=== PATIENT | male | born 1955 | race Caucasian/White ===

== ENCOUNTER 2019-06-22 13:23 | Inpatient (IN) | payer OTHER ==
--- NOTE | 2019-06-22 13:43 | EDM.PDOC ---
ED HPI GENERAL MEDICAL PROBLEM - General Chief Complaint: Chest Pain Stated Complaint: RAPID HEARTBEAT Time Seen by Provider: 06/22/19 13:30 Source of Information: Reports: Patient, Family History Limitations: Reports: No Limitations - History of Present Illness INITIAL COMMENTS - FREE TEXT/NARRATIVE: Patient is unfortunate 63-year-old male who presents emergency Department today with complaint of fast heart rate. Patient reports that he was in his normal state of health until week ago when he developed a cough with productive yellow sputum and sinus congestion no fever no chills no body aches. Patient reports that he went to the clinic in [facility] yesterday was found to have a high heart rate they placed him on Zithromax and sent him home he went back again today for follow-up EKG showed A. fib with RVR so patient was sent here for evaluation. No chest pain no shortness of breath no nausea no vomiting - Related Data Allergies Allergy/AdvReac Type Severity Reaction Status Date / Time No Known Allergies Allergy Verified 06/22/19 13:43 ED ROS GENERAL - Review of Systems Review Of Systems: See Below Constitutional: Denies: Fever, Chills HEENT: Reports: Rhinitis Respiratory: Reports: Cough, Sputum. Denies: Shortness of Breath Cardiovascular: Reports: Other (tachycardia). Denies: Chest Pain, Blood Pressure Problem ED EXAM, GENERAL - Physical Exam Exam: See Below Exam Limited By: No Limitations General Appearance: Alert, WD/WN, Obese Ears: Normal External Exam, Normal Canal, Hearing Grossly Normal, Normal TMs Nose: Normal Inspection, Normal Mucosa, No Blood Throat/Mouth: Normal Inspection, Normal Lips, Normal Teeth, Normal Gums, Normal Oropharynx, Normal Voice, No Airway Compromise Head: Atraumatic, Normocephalic Neck: Normal Inspection, Supple, Non-Tender, Full Range of Motion Respiratory/Chest: No Respiratory Distress, Lungs Clear, Normal Breath Sounds, No Accessory Muscle Use, Chest Non-Tender Cardiovascular: Normal Peripheral Pulses, Tachycardia, Irregularly Irregular GI/Abdominal: Normal Bowel Sounds, Soft, Non-Tender, No Organomegaly, No Distention, No Abnormal Bruit, No Mass Back Exam: Normal Inspection, Full Range of Motion, NT Extremities: Normal Inspection, Normal Range of Motion, Non-Tender, Normal Capillary Refill, No Pedal Edema Neurological: Alert Skin Exam: Warm, Dry Course - Vital Signs Last Recorded V/S: Last Vital Signs Temp 95.6 F 06/22/19 13:36 Pulse 153 H 06/22/19 13:36 Resp 10 L 06/22/19 13:36 BP 140/111 H 06/22/19 13:36 Pulse Ox 96 06/22/19 13:36 - Orders/Labs/Meds Orders: Active Orders 24 hr Category Date Time Status Cardiac Monitoring [RC] . DIRECTED Care 06/22/19 13:40 Active EKG Documentation Completion [RC] ASDIRECTED Care 06/22/19 13:40 Active UA RFX ENOC AND CULT IF INDIC [URIN] Stat Lab 06/22/19 13:40 Ordered Diltiazem 125 mg Med 06/22/19 16:00 Active Sodium Chloride 0.9% [Normal Saline] 100 ml IV TITRATE Sodium Chloride 0.9% [Saline Flush] Med 06/22/19 13:40 Active 10 ml FLUSH ASDIRECTED PRN Saline Lock Insert [OM.PC] Stat Oth 06/22/19 13:40 Ordered EKG 12 Lead [EK] Stat Ther 06/22/19 13:40 Ordered Medication Orders Diltiazem HCl 125 mg/ Sodium (Chloride) 125 mls @ 10 mls/hr IV TITRATE FAITH; Protocol Last Admin: 06/22/19 16:14 Dose: 10 mg/hr, 10 mls/hr Sodium Chloride (Saline Flush) 10 ml FLUSH ASDIRECTED PRN PRN Reason: Keep Vein Open Last Admin: 06/22/19 14:43 Dose: 10 ml Labs: Laboratory Tests 06/22/19 06/22/19 06/22/19 Range/Units 13:40 13:40 13:40 WBC 8.31 (4.23-9.07) K/mm3 RBC 5.73 (4.63-6.08) M/mm3 Hgb 17.2 (13.7-17.5) gm/dl Hct 53.2 H (40.1-51.0) % MCV 92.8 H (79.0-92.2) fl MCH 30.0 (25.7-32.2) pg MCHC 32.3 (32.2-35.5) g/dl RDW Std Deviation 47.4 H (35.1-43.9) fL Plt Count 211 (163-337) K/mm3 MPV 10.0 (9.4-12.3) fl Neut % (Auto) 72.7 H (34.0-67.9) % Lymph % (Auto) 19.1 L (21.8-53.1) % [place] % (Auto) 7.2 (5.3-12.2) % Eos % (Auto) 0.4 L (0.8-7.0) Baso % (Auto) 0.4 (0.1-1.2) % Neut # (Auto) 6.04 H (1.78-5.38) K/mm3 Lymph # (Auto) 1.59 (1.32-3.57) K/mm3 [place] # (Auto) 0.60 (0.30-0.82) K/mm3 Eos # (Auto) 0.03 L (0.04-0.54) K/mm3 Baso # (Auto) 0.03 (0.01-0.08) K/mm3 Manual Slide Review Abnormal smear PT (9.7-12.0) SECONDS INR APTT (22-31) SECONDS Sodium 135 L (136-145) mEq/L Potassium 4.5 (3.5-5.1) mEq/L Chloride 97 L (98-107) mEq/L Carbon Dioxide 32 (21-32) mEq/L Anion Gap 10.5 (5-15) BUN 12 (7-18) mg/dL Creatinine 0.9 (0.7-1.3) mg/dL Est Cr Clr Drug Dosing 86.74 mL/min Estimated GFR (MDRD) > 60 (>60) mL/min BUN/Creatinine Ratio 13.3 L (14-18) Glucose 109 (80-115) mg/dL Calcium 9.0 (8.5-10.1) mg/dL Total Bilirubin 0.4 (0.2-1.0) mg/dL AST 23 (15-37) U/L ALT 34 (16-63) U/L Alkaline Phosphatase 88 (46-116) U/L Troponin I < 0.017 (0.00-0.056) ng/mL NT-Pro-B Natriuret Pep 912 H (0-125) pg/mL Total Protein 8.3 H (6.4-8.2) g/dl Albumin 4.0 (3.4-5.0) g/dl Globulin 4.3 gm/dL Albumin/Globulin Ratio 0.9 L (1-2) 06/22/19 Range/Units 13:40 WBC (4.23-9.07) K/mm3 RBC (4.63-6.08) M/mm3 Hgb (13.7-17.5) gm/dl Hct (40.1-51.0) % MCV (79.0-92.2) fl MCH (25.7-32.2) pg MCHC (32.2-35.5) g/dl RDW Std Deviation (35.1-43.9) fL Plt Count (163-337) K/mm3 MPV (9.4-12.3) fl Neut % (Auto) (34.0-67.9) % Lymph % (Auto) (21.8-53.1) % [place] % (Auto) (5.3-12.2) % Eos % (Auto) (0.8-7.0) Baso % (Auto) (0.1-1.2) % Neut # (Auto) (1.78-5.38) K/mm3 Lymph # (Auto) (1.32-3.57) K/mm3 [place] # (Auto) (0.30-0.82) K/mm3 Eos # (Auto) (0.04-0.54) K/mm3 Baso # (Auto) (0.01-0.08) K/mm3 Manual Slide Review PT 10.8 (9.7-12.0) SECONDS INR 0.99 APTT 26 (22-31) SECONDS Sodium (136-145) mEq/L Potassium (3.5-5.1) mEq/L Chloride (98-107) mEq/L Carbon Dioxide (21-32) mEq/L Anion Gap (5-15) BUN (7-18) mg/dL Creatinine (0.7-1.3) mg/dL Est Cr Clr Drug Dosing mL/min Estimated GFR (MDRD) (>60) mL/min BUN/Creatinine Ratio (14-18) Glucose (80-115) mg/dL Calcium (8.5-10.1) mg/dL Total Bilirubin (0.2-1.0) mg/dL AST (15-37) U/L ALT (16-63) U/L Alkaline Phosphatase (46-116) U/L Troponin I (0.00-0.056) ng/mL NT-Pro-B Natriuret Pep (0-125) pg/mL Total Protein (6.4-8.2) g/dl Albumin (3.4-5.0) g/dl Globulin gm/dL Albumin/Globulin Ratio (1-2) Meds: Medications Generic Name Dose Route Start Last Admin Trade Name Freq PRN Reason Stop Dose Admin Diltiazem HCl 125 mg/ Sodium 125 mls @ 10 mls/hr 06/22/19 16:00 06/22/19 16: 14 Chloride IV 10 mg/hr TITRATE FAITH 10 mls/hr Administration Protocol 10 MG/HR Sodium Chloride 10 ml 06/22/19 13:40 06/22/19 14:43 Saline Flush FLUSH 10 ml ASDIRECTED PRN Administration Keep Vein Open Discontinued Medications Generic Name Dose Route Start Last Admin Trade Name Freq PRN Reason Stop Dose Admin Diltiazem HCl 10 mg 06/22/19 14:27 06/22/19 14:42 Cardizem IVPUSH 06/22/19 14:28 10 mg ONETIME ONE Administration Diltiazem HCl 10 mg 06/22/19 15:00 06/22/19 15:11 Cardizem IVPUSH 06/22/19 15:01 10 mg ONETIME ONE Administration Enoxaparin Sodium 120 mg 06/22/19 16:34 06/22/19 16:41 Lovenox SUBCUT 06/22/19 16:35 120 mg ONETIME ONE Administration - Re-Assessments/Exams Free Text/Narrative Re-Assessment/Exam: 06/22/19 16:[address] Juarez who accepts patient into inpatient status for A. fib with RVR Departure - Departure Time of Disposition: 17:00 Disposition: Admitted As Inpatient 66 Condition: Fair Clinical Impression: Atrial fibrillation with RVR Referrals: PCP,Not In Area [Primary Care Provider] - Forms: ED Department Discharge Sepsis Event Note - Evaluation Sepsis Screening Result: No Definite Risk - Focused Exam Vital Signs: Vital Signs Temp Pulse Resp BP Pulse Ox 06/22/19 13:36 95.6 F 153 H 10 L 140/111 H 96 Date Exam was Performed: 06/22/19 Time Exam was Performed: 17:00 - My Orders Last 24 Hours: My Active Orders 06/22/19 13:40 Cardiac Monitoring [RC] . DIRECTED EKG Documentation Completion [RC] ASDIRECTED UA RFX ENOC AND CULT IF INDIC [URIN] Stat Sodium Chloride 0.9% [Saline Flush] 10 ml FLUSH ASDIRECTED PRN Saline Lock Insert [OM.PC] Stat EKG 12 Lead [EK] Stat 06/22/19 16:00 Diltiazem 125 mg Sodium Chloride 0.9% [Normal Saline] 100 ml IV TITRATE - Assessment/Plan Last 24 Hours: My Active Orders 06/22/19 13:40 Cardiac Monitoring [RC] . DIRECTED EKG Documentation Completion [RC] ASDIRECTED UA RFX ENOC AND CULT IF INDIC [URIN] Stat Sodium Chloride 0.9% [Saline Flush] 10 ml FLUSH ASDIRECTED PRN Saline Lock Insert [OM.PC] Stat EKG 12 Lead [EK] Stat 06/22/19 16:00 Diltiazem 125 mg Sodium Chloride 0.9% [Normal Saline] 100 ml IV TITRATE
[2019-06-22] MEDS ORDERED: Diltiazem 50 MG/10 ML SDV IVPUSH ONE ×2 (14:27→15:00)
[2019-06-22] MEDS: Sodium Chloride 0.9% 10 ML Syringe FLUSH PRN (14:43)
--- NOTE | 2019-06-22 15:13 | CR ---
Chest: Two views of the chest were obtained. Comparison: No previous chest x-ray. Heart size and mediastinum are normal. Lungs are clear. Bony structures are within normal limits for the patient's age. Impression: 1. Nothing acute is seen on two-view chest x-ray. Diagnostic code #1 This report was dictated in [place] Standard Time
[2019-06-22] MEDS: Diltiazem 125 MG in Sodium Chloride 0.9% 100 ML IV SCH (16:14)
[2019-06-22] MEDS ORDERED: Enoxaparin 120 MG/0.8 ML Syringe SUBCUT ONE (16:34)
[2019-06-22] MEDS ORDERED: Ondansetron 4 MG/2 ML SDV IV PRN (17:27)
[2019-06-22] MEDS ORDERED: Ondansetron 4 MG Tab.DIS PO PRN (17:27)
--- NOTE | 2019-06-22 17:45 | PCM.HP.2 ---
H&P History of Present Illness - General Date of Service: 06/22/19 Admit Problem/Dx: Admission Diagnosis/Problem Admission Diagnosis/Problem Atrial fibrillation with rapid ventricular response - History of Present Illness Initial Comments - Free Text/Narative: This is a 63 year old male with past medical history of hypertension who comes to the ED referred by outpatient walk in clinic for afib with RVR. As per patient he started having nasal congestion and coughing for about 3 days. On Wednesday he consulted walk in clinic and was given Zithromax and sent home to f/u in 2 days. Upon follow up patient was found to be tachycardic still for which he was sent to the ED for further evaluation and management. - Related Data Allergies/Adverse Reactions: Allergies Allergy/AdvReac Type Severity Reaction Status Date / Time No Known Allergies Allergy Verified 06/22/19 13:43 Past Medical History Cardiovascular History: Reports: Hypertension Respiratory History: Reports: Bronchitis, Recurrent Musculoskeletal History: Reports: Arthritis Other Musculoskeletal History: right great toe Neurological History: Reports: Migraines Endocrine/Metabolic History: Reports: Hypothyroidism - Past Surgical History GI Surgical History: Reports: Colonoscopy, Hernia, Abdominal Musculoskeletal Surgical History: Reports: Other (See Below) Other Musculoskeletal Surgeries/Procedures:: right tib/fib fracture with martha removed Social & Family History - Tobacco Use Smoking Status *Q: Never Smoker - Caffeine Use Caffeine Use: Reports: Soda Other Caffeine Use: diet - Recreational Drug Use Recreational Drug Use: No H&P Review of Systems - Review of Systems: Review Of Systems: See Below General: Denies: Fever, Chills, Malaise, Weakness, Fatigue, Night Sweats, Diaphoresis, Decreased Appetite HEENT: Reports: Sinus Congestion. Denies: Headaches, Post Nasal Drip, Sore Throat, Vertigo, Visual Changes Pulmonary: Reports: Cough. Denies: Shortness of Breath, Wheezing, Pleuritic Chest Pain, Sputum, Hemoptysis Cardiovascular: Denies: Chest Pain, Palpitations, Dyspnea on Exertion, Orthopnea , PND, Edema, Lightheadedness, Syncope Gastrointestinal: Denies: Abdominal Pain, Anorexia, Constipation, Diarrhea, Distension, Nausea, Vomiting Genitourinary: Denies: Dysuria, Frequency, Burning, Pain, Urgency Musculoskeletal: Denies: Joint Pain, Joint Swelling, Muscle Pain, Muscle Stiffness Skin: Denies: Cyanosis, Jaundice, Mottled, Pallor, Diaphoresis Psychiatric: Denies: Confusion, Depression, Mood Lability, Anxiety Neurological: Denies: Confusion, Dizziness, Headache, Numbness, Paresthesia Exam - Exam Exam: See Below - Vital Signs Vital Signs: Last Vital Signs Temp 95.6 F 06/22/19 13:36 Pulse 153 H 06/22/19 13:36 Resp 10 L 06/22/19 13:36 BP 140/111 H 06/22/19 13:36 Pulse Ox 96 06/22/19 13:36 Weight: 127.006 kg - Exam Quality Assessment: No: Supplemental Oxygen, Central Line/PICC, Urinary Catheter General: Alert, Oriented, Cooperative. No: Mild Distress HEENT: EOMI, Hearing Intact Neck: Supple, Trachea Midline, +2 Carotid Pulse wo Bruit, Full Range of Motion. No: Lymphadenopathy Lungs: Clear to Auscultation, Normal Respiratory Effort. No: Crackles, Rales, Rhonchi, Wheezing Cardiovascular: Irregular Rhythm, Tachycardia. No: Systolic Murmur, Diastolic Murmur, Rubs, Gallop/S3, Gallop/S4 GI/Abdominal Exam: Normal Bowel Sounds, Soft, Non-Tender, No Organomegaly, No Distention, No Mass. No: Distended, Guarding, Rigid, Rebound Back Exam: Normal Inspection Extremities: Normal Inspection, Normal Range of Motion, Non-Tender, No Pedal Edema, Normal Capillary Refill Peripheral Pulses: 2+: Radial (L), Radial (R), Dorsalis Pedis (L), Dorsalis Pedis (R) Skin: Warm, Dry Neuro Extensive - Mental Status: Alert, Oriented x3, Normal Mood/Affect, Normal Cognition, Memory Intact Psychiatric: Alert, Normal Affect, Normal Mood - Patient Data Result Diagrams: 06/22/19 13:40 06/22/19 13:40 Sepsis Event Note - Evaluation Sepsis Screening Result: No Definite Risk - Focused Exam Vital Signs: Vital Signs Temp Pulse Resp BP Pulse Ox 06/22/19 13:36 95.6 F 153 H 10 L 140/111 H 96 Date Exam was Performed: 06/22/19 Time Exam was Performed: 17:40 - Problem List (1) Atrial fibrillation with RVR SNOMED Code(s): 910326324162351 ICD Code: I48.91 - UNSPECIFIED ATRIAL FIBRILLATION Status: Acute Current Visit: Yes (2) Hypertension SNOMED Code(s): 96293629 ICD Code: I10 - ESSENTIAL (PRIMARY) HYPERTENSION Status: Acute Current Visit: Yes (3) Hypothyroidism SNOMED Code(s): 71566151 ICD Code: E03.9 - HYPOTHYROIDISM, UNSPECIFIED Status: Acute Current Visit : Yes (4) Obesity, Class III, BMI 40-49.9 (morbid obesity) SNOMED Code(s): 577249028, 105950400, 58380011647586 ICD Code: E66.01 - MORBID (SEVERE) OBESITY DUE TO EXCESS CALORIES Status: Acute Current Visit: Yes Problem List Initiated/Reviewed/Updated: Yes Assessment/Plan Comment:: Atrial fibrillation with RVR HR on admission 153 Given Diltiazem 10mg IV and started on drip PLAN - Diltiazem drip - Echocardiogram - HbA1c - Calculate chads vasc once HbA1c result is back Hypertension BP on admission 140/111, HR 153 PLAN - Reconcile home meds once available - PRN hydralazine Hypothyroidism Unknown control Patient voices compliance PLAN - TSH - Free T4 - Continue home levothyroxine once home meds are available Obesity, Class III, BMI 40-49.9 (morbid obesity) Patient on metformin for weight loss PLAN - HbA1c ordered PROPHYLAXIS DVT- compression stockings GI- not indicated CODE STATUS: FULL CODE DISPOSITION: Patient will be admitted to the ICU for diltiazem drip, taper off once rate controlled. Echocardiogram ordered. 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 - Mortality Measure Prognosis:: Good
[2019-06-22 18:05] LABS: HEMOGLOBIN A1C 5.6 % (4.50-6.20)
[2019-06-23] MEDS: Diltiazem 125 MG in Sodium Chloride 0.9% 100 ML IV SCH ×2 (01:24→08:47)
--- NOTE | 2019-06-23 11:32 | PCM.PN ---
- General Info Date of Service: 06/23/19 Admission Dx/Problem (Free Text): Admission Diagnosis/Problem Admission Diagnosis/Problem Atrial fibrillation with rapid ventricular response Subjective Update: In to see Ladarius. We discussed plan of care. He reports he travels back and forth between [place] and here. He does not have a PCP here but does have one in [place]. He has never seen cardiology. He currently has no complaints. No nursing concerns. He did bring in his home medications. Functional Status: Reports: Pain Controlled, Tolerating Diet, Ambulating, Urinating. Denies: New Symptoms - Review of Systems General: Reports: No Symptoms. Denies: Fever, Weakness, Fatigue, Malaise HEENT: Reports: No Symptoms. Denies: Headaches, Sore Throat Pulmonary: Reports: No Symptoms. Denies: Shortness of Breath, Cough, Sputum, Wheezing Cardiovascular: Reports: No Symptoms. Denies: Chest Pain, Palpitations, Dyspnea on Exertion Gastrointestinal: Reports: No Symptoms. Denies: Abdominal Pain, Constipation, Diarrhea, Nausea, Vomiting Genitourinary: Reports: No Symptoms. Denies: Pain Musculoskeletal: Reports: No Symptoms Skin: Reports: No Symptoms. Denies: Cyanosis Neurological: Reports: No Symptoms. Denies: Pre-Existing Deficit, Difficulty Walking, Gait Disturbance Psychiatric: Reports: No Symptoms - Patient Data Vitals - Most Recent: Last Vital Signs Temp 97.4 F 06/23/19 08:00 Pulse 153 H 06/22/19 13:36 Resp 18 06/23/19 08:00 BP 120/87 06/23/19 08:01 Pulse Ox 96 06/23/19 08:01 Weight - Most Recent: 272 lb 4.8 oz I&O - Last 24 Hours: Intake & Output 06/22/19 06/23/19 06/23/19 22:59 06:59 14:59 Intake Total 300 443 300 Output Total 250 300 Balance 50 143 300 Lab Results Last 24 Hours: Laboratory Results - last 24 hr 06/22/19 06/22/19 06/22/19 Range/Units 13:40 13:40 13:40 WBC 8.31 (4.23-9.07) K/mm3 RBC 5.73 (4.63-6.08) M/mm3 Hgb 17.2 (13.7-17.5) gm/dl Hct 53.2 H (40.1-51.0) % MCV 92.8 H (79.0-92.2) fl MCH 30.0 (25.7-32.2) pg MCHC 32.3 (32.2-35.5) g/dl RDW Std Deviation 47.4 H (35.1-43.9) fL Plt Count 211 (163-337) K/mm3 MPV 10.0 (9.4-12.3) fl Neut % (Auto) 72.7 H (34.0-67.9) % Lymph % (Auto) 19.1 L (21.8-53.1) % [place] % (Auto) 7.2 (5.3-12.2) % Eos % (Auto) 0.4 L (0.8-7.0) Baso % (Auto) 0.4 (0.1-1.2) % Neut # (Auto) 6.04 H (1.78-5.38) K/mm3 Lymph # (Auto) 1.59 (1.32-3.57) K/mm3 [place] # (Auto) 0.60 (0.30-0.82) K/mm3 Eos # (Auto) 0.03 L (0.04-0.54) K/mm3 Baso # (Auto) 0.03 (0.01-0.08) K/mm3 Manual Slide Review Abnormal smear PT (9.7-12.0) SECONDS INR APTT (22-31) SECONDS Sodium 135 L (136-145) mEq/L Potassium 4.5 (3.5-5.1) mEq/L Chloride 97 L (98-107) mEq/L Carbon Dioxide 32 (21-32) mEq/L Anion Gap 10.5 (5-15) BUN 12 (7-18) mg/dL Creatinine 0.9 (0.7-1.3) mg/dL Est Cr Clr Drug Dosing 86.74 mL/min Estimated GFR (MDRD) > 60 (>60) mL/min BUN/Creatinine Ratio 13.3 L (14-18) Glucose 109 (80-115) mg/dL Hemoglobin A1c (4.50-6.20) % Calcium 9.0 (8.5-10.1) mg/dL Phosphorus (2.6-4.7) mg/dL Magnesium (1.8-2.4) mg/dl Total Bilirubin 0.4 (0.2-1.0) mg/dL AST 23 (15-37) U/L ALT 34 (16-63) U/L Alkaline Phosphatase 88 (46-116) U/L Troponin I < 0.017 (0.00-0.056) ng/mL NT-Pro-B Natriuret Pep 912 H (0-125) pg/mL Total Protein 8.3 H (6.4-8.2) g/dl Albumin 4.0 (3.4-5.0) g/dl Globulin 4.3 gm/dL Albumin/Globulin Ratio 0.9 L (1-2) Free T4 (0.76-1.46) ng/dL TSH 3rd Generation (0.358-3.74) uIU/mL Urine Color (Yellow) Urine Appearance (Clear) Urine pH (5.0-8.0) Ur Specific Violet (1.005-1.030) Urine Protein (Negative) Urine Glucose (UA) (Negative) Urine Ketones (Negative) Urine Occult Blood (Negative) Urine Nitrite (Negative) Urine Bilirubin (Negative) Urine Urobilinogen (0.2-1.0) Ur Leukocyte Esterase (Negative) 06/22/19 06/22/19 06/22/19 Range/Units 13:40 13:40 13:40 WBC (4.23-9.07) K/mm3 RBC (4.63-6.08) M/mm3 Hgb (13.7-17.5) gm/dl Hct (40.1-51.0) % MCV (79.0-92.2) fl MCH (25.7-32.2) pg MCHC (32.2-35.5) g/dl RDW Std Deviation (35.1-43.9) fL Plt Count (163-337) K/mm3 MPV (9.4-12.3) fl Neut % (Auto) (34.0-67.9) % Lymph % (Auto) (21.8-53.1) % [place] % (Auto) (5.3-12.2) % Eos % (Auto) (0.8-7.0) Baso % (Auto) (0.1-1.2) % Neut # (Auto) (1.78-5.38) K/mm3 Lymph # (Auto) (1.32-3.57) K/mm3 [place] # (Auto) (0.30-0.82) K/mm3 Eos # (Auto) (0.04-0.54) K/mm3 Baso # (Auto) (0.01-0.08) K/mm3 Manual Slide Review PT 10.8 (9.7-12.0) SECONDS INR 0.99 APTT 26 (22-31) SECONDS Sodium (136-145) mEq/L Potassium (3.5-5.1) mEq/L Chloride (98-107) mEq/L Carbon Dioxide (21-32) mEq/L Anion Gap (5-15) BUN (7-18) mg/dL Creatinine (0.7-1.3) mg/dL Est Cr Clr Drug Dosing mL/min Estimated GFR (MDRD) (>60) mL/min BUN/Creatinine Ratio (14-18) Glucose (80-115) mg/dL Hemoglobin A1c 5.60 (4.50-6.20) % Calcium (8.5-10.1) mg/dL Phosphorus (2.6-4.7) mg/dL Magnesium (1.8-2.4) mg/dl Total Bilirubin (0.2-1.0) mg/dL AST (15-37) U/L ALT (16-63) U/L Alkaline Phosphatase (46-116) U/L Troponin I (0.00-0.056) ng/mL NT-Pro-B Natriuret Pep (0-125) pg/mL Total Protein (6.4-8.2) g/dl Albumin (3.4-5.0) g/dl Globulin gm/dL Albumin/Globulin Ratio (1-2) Free T4 1.43 (0.76-1.46) ng/dL TSH 3rd Generation 0.127 L (0.358-3.74) uIU/mL Urine Color (Yellow) Urine Appearance (Clear) Urine pH (5.0-8.0) Ur Specific Violet (1.005-1.030) Urine Protein (Negative) Urine Glucose (UA) (Negative) Urine Ketones (Negative) Urine Occult Blood (Negative) Urine Nitrite (Negative) Urine Bilirubin (Negative) Urine Urobilinogen (0.2-1.0) Ur Leukocyte Esterase (Negative) 06/22/19 06/23/19 Range/Units 19:20 04:54 WBC (4.23-9.07) K/mm3 RBC (4.63-6.08) M/mm3 Hgb (13.7-17.5) gm/dl Hct (40.1-51.0) % MCV (79.0-92.2) fl MCH (25.7-32.2) pg MCHC (32.2-35.5) g/dl RDW Std Deviation (35.1-43.9) fL Plt Count (163-337) K/mm3 MPV (9.4-12.3) fl Neut % (Auto) (34.0-67.9) % Lymph % (Auto) (21.8-53.1) % [place] % (Auto) (5.3-12.2) % Eos % (Auto) (0.8-7.0) Baso % (Auto) (0.1-1.2) % Neut # (Auto) (1.78-5.38) K/mm3 Lymph # (Auto) (1.32-3.57) K/mm3 [place] # (Auto) (0.30-0.82) K/mm3 Eos # (Auto) (0.04-0.54) K/mm3 Baso # (Auto) (0.01-0.08) K/mm3 Manual Slide Review PT (9.7-12.0) SECONDS INR APTT (22-31) SECONDS Sodium 136 (136-145) mEq/L Potassium 4.1 (3.5-5.1) mEq/L Chloride 100 (98-107) mEq/L Carbon Dioxide 28 (21-32) mEq/L Anion Gap 12.1 (5-15) BUN 16 (7-18) mg/dL Creatinine 0.8 (0.7-1.3) mg/dL Est Cr Clr Drug Dosing 100.66 mL/min Estimated GFR (MDRD) > 60 (>60) mL/min BUN/Creatinine Ratio 20.0 H (14-18) Glucose 90 (80-115) mg/dL Hemoglobin A1c (4.50-6.20) % Calcium 9.0 (8.5-10.1) mg/dL Phosphorus 4.0 (2.6-4.7) mg/dL Magnesium 2.1 (1.8-2.4) mg/dl Total Bilirubin (0.2-1.0) mg/dL AST (15-37) U/L ALT (16-63) U/L Alkaline Phosphatase (46-116) U/L Troponin I (0.00-0.056) ng/mL NT-Pro-B Natriuret Pep (0-125) pg/mL Total Protein (6.4-8.2) g/dl Albumin (3.4-5.0) g/dl Globulin gm/dL Albumin/Globulin Ratio (1-2) Free T4 (0.76-1.46) ng/dL TSH 3rd Generation (0.358-3.74) uIU/mL Urine Color Yellow (Yellow) Urine Appearance Clear (Clear) Urine pH 7.5 (5.0-8.0) Ur Specific Violet 1.020 (1.005-1.030) Urine Protein Negative (Negative) Urine Glucose (UA) Negative (Negative) Urine Ketones Negative (Negative) Urine Occult Blood Negative (Negative) Urine Nitrite Negative (Negative) Urine Bilirubin Negative (Negative) Urine Urobilinogen 0.2 (0.2-1.0) Ur Leukocyte Esterase Negative (Negative) Med Orders - Current: Current Medications Diltiazem HCl 125 mg/ Sodium (Chloride) 125 mls @ 10 mls/hr IV TITRATE [facility]; Protocol Last Admin: 06/23/19 08:47 Dose: 15 mg/hr, 15 mls/hr Amiodarone HCl/Dextrose (Nexterone In Dextrose 150 Mg/100 Ml) 100 mls @ 600 mls /hr IV .BOLUS ONE; Protocol Stop: 06/23/19 11:39 Last Admin: 06/23/19 11:27 Dose: 600 mls/hr Amiodarone HCl/Dextrose (Nexterone In Dextrose 360 Mg/200 Ml) 360 mg in 200 mls @ 33.333 mls/hr IV ASDIRECTED [facility]; Protocol Influenza Virus Vaccine (Fluzone Quad [id number] Syringe) 60 mcg IM .ONCE ONE Stop: 06/27/19 18:01 Ondansetron HCl (Zofran Odt) 4 mg PO Q6H PRN PRN Reason: nausea, able to take PO Ondansetron HCl (Zofran) 4 mg IV Q6H PRN PRN Reason: Nausea/Vomiting Rivaroxaban (Xarelto) 20 mg PO WITHJOSEFA [facility] Sodium Chloride (Saline Flush) 10 ml FLUSH ASDIRECTED PRN PRN Reason: Keep Vein Open Last Admin: 06/22/19 14:43 Dose: 10 ml Discontinued Medications Diltiazem HCl (Cardizem) 10 mg IVPUSH ONETIME ONE Stop: 06/22/19 14:28 Last Admin: 06/22/19 14:42 Dose: 10 mg Diltiazem HCl (Cardizem) 10 mg IVPUSH ONETIME ONE Stop: 06/22/19 15:01 Last Admin: 06/22/19 15:11 Dose: 10 mg Enoxaparin Sodium (Lovenox) 120 mg SUBCUT ONETIME ONE Stop: 06/22/19 16:35 Last Admin: 06/22/19 16:41 Dose: 120 mg Influenza Virus Vaccine (Pharmacy To Dose - Influenza Vaccine) 1 each IM ONETIME ONE Stop: 06/27/19 18:58 - Exam Quality Assessment: DVT Prophylaxis. No: Supplemental Oxygen General: Alert, Oriented, Cooperative, No Acute Distress HEENT: Pupils Equal, Pupils Reactive, Mucous Membr. Moist/[place] Neck: Supple, Trachea Midline Lungs: Clear to Auscultation, Normal Respiratory Effort Cardiovascular: Irregular Rhythm (irregular rate ) GI/Abdominal Exam: Normal Bowel Sounds, Soft, Non-Tender, No Distention, Hernia (umbilical ) (Male) Exam: Deferred Back Exam: Normal Inspection, Full Range of Motion Extremities: Normal Inspection, Normal Range of Motion, Non-Tender, No Pedal Edema, Normal Capillary Refill Skin: Warm, Dry, Intact Neurological: No New Focal Deficit Psy/Mental Status: Alert, Normal Affect, Normal Mood Sepsis Event Note - Evaluation Sepsis Screening Result: No Definite Risk - Focused Exam Vital Signs: Vital Signs Temp Resp BP BP Pulse Ox 06/23/19 08:01 120/87 96 06/23/19 08:00 97.4 F 18 120/87 95 06/23/19 07:23 136/82 94 L 06/23/19 07:22 95 06/23/19 07:20 138/116 H 94 L 06/23/19 07:19 94 L 06/23/19 07:01 119/83 97 06/23/19 07:00 119/83 06/23/19 06:00 117/92 H 06/23/19 05:01 133/69 94 L 06/23/19 05:00 133/69 93 L 06/23/19 04:01 114/75 93 L 06/23/19 04:00 97.5 F 20 114/75 93 L 06/23/19 03:01 108/69 91 L 06/23/19 03:00 108/69 91 L 06/23/19 02:05 112/70 93 L 06/23/19 02:04 93 L 06/23/19 02:03 95 06/23/19 02:00 112/70 93 L 06/23/19 01:57 92 L 06/23/19 01:01 94 L 06/23/19 01:00 104/71 104/71 94 L 06/23/19 00:59 94 L 06/23/19 00:01 95 06/23/19 00:00 98.1 F 19 112/82 112/82 94 L 06/22/19 23:59 96 Date Exam was Performed: 06/23/19 Time Exam was Performed: 13:39 - Problem List & Annotations (1) Atrial fibrillation with RVR SNOMED Code(s): 448830991280034 Code(s): I48.91 - UNSPECIFIED ATRIAL FIBRILLATION Status: Acute Priority : High Current Visit: Yes (2) Hypertension SNOMED Code(s): 51313987 Code(s): I10 - ESSENTIAL (PRIMARY) HYPERTENSION Status: Chronic Priority : Medium Current Visit: Yes Qualifiers: Hypertension type: unspecified Qualified Code(s): I10 - Essential (primary ) hypertension (3) Hypothyroidism SNOMED Code(s): 01217630 Code(s): E03.9 - HYPOTHYROIDISM, UNSPECIFIED Status: Chronic Priority: Medium Current Visit: Yes Qualifiers: Hypothyroidism type: unspecified Qualified Code(s): E03.9 - Hypothyroidism , unspecified (4) Obesity, Class III, BMI 40-49.9 (morbid obesity) SNOMED Code(s): 192471816, 138543444, 33966258795906 Code(s): E66.01 - MORBID (SEVERE) OBESITY DUE TO EXCESS CALORIES Status: Chronic Priority: Low Current Visit: No - Problem List Review Problem List Initiated/Reviewed/Updated: Yes - Plan Plan:: Atrial fibrillation with RVR HR on admission 153 Given Diltiazem 10mg IV and started on drip with minimal improvement Lovenox given in ED HgbA1c 5.60 [id number] score of 1 (0.6% CVA risk per year) PLAN - D/C Diltiazem drip and start on amiodarone drip - Echocardiogram obtained and pending - Start on Xarelto tonight Hypertension, stable BP on admission 140/111, HR 153 PLAN - Reconciled home meds - PRN hydralazine Hypothyroidism, stable Unknown control Patient voices compliance TSH 0.127; Free T4 1.43 PLAN - Continue home levothyroxine Obesity, Class III, BMI 40-49.9 (morbid obesity), stable Patient on metformin for weight loss HbA1c 5.60 PLAN - Consult dietary PROPHYLAXIS DVT- compression stockings GI- not indicated CODE STATUS: FULL CODE DISPOSITION: Patient was admitted to the ICU for diltiazem drip and changed to IV amiodarone drip, taper off once rate controlled. Echocardiogram pending. 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
[2019-06-23] MEDS: Rivaroxaban 10 MG Tab PO SCH (16:35)
[2019-06-23] MEDS: Metoprolol Tartrate 25 MG Tab PO SCH (20:02)
[2019-06-24] MEDS: guaiFENesin 600 MG Tab.ER PO SCH ×2 (08:03→20:31)
[2019-06-24] MEDS: Benzonatate 100 MG Cap PO SCH ×3 (08:03→20:31)
[2019-06-24] MEDS: Lisinopril 20 MG Tab PO SCH (08:03)
[2019-06-24] MEDS: Metoprolol Tartrate 25 MG Tab PO SCH (08:03)
[2019-06-24] MEDS: Hydrochlorothiazide 12.5 MG Cap PO SCH (08:04)
[2019-06-24] MEDS ORDERED: Metoprolol Tartrate 25 MG Tab PO ONE (08:28)
[2019-06-24] MEDS: Rivaroxaban 10 MG Tab PO SCH (16:10)
[2019-06-24] MEDS: Amiodarone 200 MG Tab PO SCH (16:12)
[2019-06-24] MEDS: Metoprolol Tartrate 50 MG Tab PO SCH (20:31)
--- NOTE | 2019-06-24 21:46 | PCM.PN ---
- General Info Date of Service: 06/24/19 Subjective Update: Feeling ok Tolerating diet Ambulating HR still not controlled Hypoxemia overnight - Patient Data Vitals - Most Recent: Last Vital Signs Temp 97.7 F 06/24/19 20:00 Pulse 85 06/24/19 20:31 Resp 18 06/24/19 20:00 BP 110/75 06/24/19 20:31 Pulse Ox 95 06/24/19 20:00 Weight - Most Recent: 125.645 kg I&O - Last 24 Hours: Intake & Output 06/24/19 06/24/19 06/24/19 06:59 14:59 22:59 Intake Total 6130 464 7330 Output Total 750 750 700 Balance 439 110 401 Lab Results Last 24 Hours: Laboratory Results - last 24 hr 06/24/19 06/24/19 Range/Units 07:58 07:58 WBC 12.80 H (4.23-9.07) K/mm3 RBC 5.30 (4.63-6.08) M/mm3 Hgb 15.8 (13.7-17.5) gm/dl Hct 48.4 (40.1-51.0) % MCV 91.3 (79.0-92.2) fl MCH 29.8 (25.7-32.2) pg MCHC 32.6 (32.2-35.5) g/dl RDW Std Deviation 46.8 H (35.1-43.9) fL Plt Count 238 (163-337) K/mm3 MPV 9.7 (9.4-12.3) fl Neut % (Auto) 67.8 (34.0-67.9) % Lymph % (Auto) 22.6 (21.8-53.1) % [place] % (Auto) 8.3 (5.3-12.2) % Eos % (Auto) 0.8 (0.8-7.0) Baso % (Auto) 0.2 (0.1-1.2) % Neut # (Auto) 8.68 H (1.78-5.38) K/mm3 Lymph # (Auto) 2.89 (1.32-3.57) K/mm3 [place] # (Auto) 1.06 H (0.30-0.82) K/mm3 Eos # (Auto) 0.10 (0.04-0.54) K/mm3 Baso # (Auto) 0.03 (0.01-0.08) K/mm3 Sodium 137 (136-145) mEq/L Potassium 4.1 (3.5-5.1) mEq/L Chloride 99 (98-107) mEq/L Carbon Dioxide 26 (21-32) mEq/L Anion Gap 16.1 H (5-15) BUN 13 (7-18) mg/dL Creatinine 0.8 (0.7-1.3) mg/dL Est Cr Clr Drug Dosing 100.66 mL/min Estimated GFR (MDRD) > 60 (>60) mL/min BUN/Creatinine Ratio 16.3 (14-18) Glucose 100 (80-115) mg/dL Calcium 8.7 (8.5-10.1) mg/dL Phosphorus 4.0 (2.6-4.7) mg/dL Magnesium 2.1 (1.8-2.4) mg/dl Med Orders - Current: Current Medications Amiodarone HCl (Cordarone) 200 mg PO DAILY [facility] Last Admin: 06/24/19 16:12 Dose: 200 mg Benzonatate (Tessalon Perles) 100 mg PO TID [facility] Last Admin: 06/24/19 20:31 Dose: 100 mg Guaifenesin (Mucinex) 600 mg PO BID [facility] Last Admin: 06/24/19 20:31 Dose: 600 mg Hydrochlorothiazide (Hydrochlorothiazide) 12.5 mg PO DAILY [facility] Last Admin: 06/24/19 08:04 Dose: 12.5 mg Amiodarone HCl/Dextrose (Nexterone In Dextrose 360 Mg/200 Ml) 360 mg in 200 mls @ 33.333 mls/hr IV ASDIRECTED [facility]; Protocol Last Admin: 06/24/19 05:20 Dose: 16.7 mls/hr Influenza Virus Vaccine (Fluzone Quad [id number] Syringe) 60 mcg IM .ONCE ONE Stop: 06/27/19 18:01 Levothyroxine Sodium (Levothyroxine) 175 mcg PO ACBREAKFAST [facility] Last Admin: 06/24/19 06:16 Dose: 175 mcg Lisinopril (Prinivil) 20 mg PO DAILY [facility] Last Admin: 06/24/19 08:03 Dose: 20 mg Metoprolol Tartrate (Lopressor) 50 mg PO BID [facility] Last Admin: 06/24/19 20:31 Dose: 50 mg Ondansetron HCl (Zofran Odt) 4 mg PO Q6H PRN PRN Reason: nausea, able to take PO Ondansetron HCl (Zofran) 4 mg IV Q6H PRN PRN Reason: Nausea/Vomiting Rivaroxaban (Xarelto) 20 mg PO WITHDINNER [facility] Last Admin: 06/24/19 16:10 Dose: 20 mg Sodium Chloride (Saline Flush) 10 ml FLUSH ASDIRECTED PRN PRN Reason: Keep Vein Open Last Admin: 06/22/19 14:43 Dose: 10 ml Discontinued Medications Diltiazem HCl (Cardizem) 10 mg IVPUSH ONETIME ONE Stop: 06/22/19 14:28 Last Admin: 06/22/19 14:42 Dose: 10 mg Diltiazem HCl (Cardizem) 10 mg IVPUSH ONETIME ONE Stop: 06/22/19 15:01 Last Admin: 06/22/19 15:11 Dose: 10 mg Enoxaparin Sodium (Lovenox) 120 mg SUBCUT ONETIME ONE Stop: 06/22/19 16:35 Last Admin: 06/22/19 16:41 Dose: 120 mg Diltiazem HCl 125 mg/ Sodium (Chloride) 125 mls @ 10 mls/hr IV TITRATE [facility]; Protocol Last Admin: 06/23/19 08:47 Dose: 15 mg/hr, 15 mls/hr Amiodarone HCl/Dextrose (Nexterone In Dextrose 150 Mg/100 Ml) 100 mls @ 600 mls /hr IV .BOLUS ONE; Protocol Stop: 06/23/19 11:39 Last Admin: 06/23/19 11:27 Dose: 600 mls/hr Influenza Virus Vaccine (Pharmacy To Dose - Influenza Vaccine) 1 each IM ONETIME ONE Stop: 06/27/19 18:58 Levothyroxine Sodium (Levothyroxine) 175 mcg PO ONETIME ONE Stop: 06/23/19 15:31 Last Admin: 06/23/19 15:27 Dose: 175 mcg Metoprolol Tartrate (Lopressor) 25 mg PO BID [facility] Last Admin: 06/24/19 08:03 Dose: 25 mg Metoprolol Tartrate (Lopressor) 25 mg PO ONETIME ONE Stop: 06/24/19 08:29 Last Admin: 06/24/19 08:41 Dose: 25 mg Sepsis Event Note - Evaluation Sepsis Screening Result: No Definite Risk - Focused Exam Vital Signs: Vital Signs Temp Pulse Resp BP BP Pulse Ox 06/24/19 20:31 85 110/75 06/24/19 20:30 91/76 06/24/19 20:00 97.7 F 18 114/78 95 06/24/19 16:00 98.1 F 94 18 111/76 98 06/24/19 12:00 98.1 F 115/77 96 06/24/19 11:00 111/89 06/24/19 10:00 136/94 H Date Exam was Performed: 06/25/19 Time Exam was Performed: 18:33 - Problem List & Annotations (1) Atrial fibrillation with RVR SNOMED Code(s): 330073554389199 Code(s): I48.91 - UNSPECIFIED ATRIAL FIBRILLATION Status: Acute Priority : High Current Visit: Yes (2) Hypertension SNOMED Code(s): 36822560 Code(s): I10 - ESSENTIAL (PRIMARY) HYPERTENSION Status: Chronic Priority : Medium Current Visit: Yes Qualifiers: Hypertension type: unspecified Qualified Code(s): I10 - Essential (primary ) hypertension (3) Hypothyroidism SNOMED Code(s): 38507846 Code(s): E03.9 - HYPOTHYROIDISM, UNSPECIFIED Status: Chronic Priority: Medium Current Visit: Yes Qualifiers: Hypothyroidism type: unspecified Qualified Code(s): E03.9 - Hypothyroidism , unspecified (4) Obesity, Class III, BMI 40-49.9 (morbid obesity) SNOMED Code(s): 569456350, 964097294, 63837999697409 Code(s): E66.01 - MORBID (SEVERE) OBESITY DUE TO EXCESS CALORIES Status: Chronic Priority: Low Current Visit: No (5) Sleep apnea SNOMED Code(s): 52618687 Code(s): G47.30 - SLEEP APNEA, UNSPECIFIED Status: Acute Current Visit: Yes - Problem List Review Problem List Initiated/Reviewed/Updated: Yes - Plan Plan:: Atrial fibrillation with RVR HR on admission 153 Given Diltiazem 10mg IV and started on drip with minimal improvement Lovenox given in ED HgbA1c 5.60 [id number] score of 1 (0.6% CVA risk per year) PLAN - D/C Diltiazem drip and start on amiodarone drip - Echocardiogram obtained and pending - Start on Xarelto tonight Obstructive sleep apnea Previous diagnosis Non compliant with CPAP Discussed importance of compliance with patient PLAN - New sleep study needs to be scheduled as an outpatient Hypertension, stable BP on admission 140/111, HR 153 PLAN - Reconciled home meds - PRN hydralazine Hypothyroidism, stable Unknown control Patient voices compliance TSH 0.127; Free T4 1.43 PLAN - Continue home levothyroxine Obesity, Class III, BMI 40-49.9 (morbid obesity), stable Patient on metformin for weight loss HbA1c 5.60 PLAN - Consult dietary PROPHYLAXIS DVT- compression stockings GI- not indicated CODE STATUS: FULL CODE DISPOSITION: Patient was admitted to the ICU for diltiazem drip and changed to IV amiodarone drip, taper off once rate controlled. Echocardiogram pending. 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
[2019-06-25] MEDS: Metoprolol Tartrate 50 MG Tab PO SCH ×2 (08:17→20:02)
[2019-06-25] MEDS: Lisinopril 20 MG Tab PO SCH (08:17)
[2019-06-25] MEDS: Hydrochlorothiazide 12.5 MG Cap PO SCH (08:17)
[2019-06-25] MEDS: Benzonatate 100 MG Cap PO SCH ×3 (08:17→20:03)
[2019-06-25] MEDS: Amiodarone 200 MG Tab PO SCH ×2 (08:17→20:02)
[2019-06-25] MEDS: guaiFENesin 600 MG Tab.ER PO SCH ×2 (08:17→20:03)
[2019-06-25] MEDS ORDERED: Amiodarone 200 MG Tab PO ONE (10:01)
[2019-06-25] MEDS: Rivaroxaban 10 MG Tab PO SCH (17:54)
--- NOTE | 2019-06-25 18:26 | PCM.PN ---
- General Info Date of Service: 06/25/19 Subjective Update: Patient feeling ok Denies any chest pain, palpitations, shortness of breath Ambulating without any tachycardia Slept OK Tolerating diet - Patient Data Vitals - Most Recent: Last Vital Signs Temp 97.3 F 06/25/19 16:00 Pulse 122 H 06/25/19 08:17 Resp 16 06/25/19 16:00 BP 109/80 06/25/19 16:00 Pulse Ox 98 06/25/19 16:00 Weight - Most Recent: 124.738 kg - Exam General: Alert, Oriented, Cooperative, No Acute Distress HEENT: Pupils Equal, Pupils Reactive, EOMI, Mucous Membr. Moist/[place] Neck: Supple, Trachea Midline, No JVD, No Thyromegaly, +2 Carotid Pulse wo Bruit Lungs: Clear to Auscultation, Normal Respiratory Effort. No: Crackles, Rales, Rhonchi, Rub, Wheezing Cardiovascular: Regular Rate, Irregular Rhythm. No: Murmurs, Gallops, Rubs GI/Abdominal Exam: Normal Bowel Sounds, Soft, Non-Tender, No Organomegaly. No: Distended, Guarding, Rigid Back Exam: Normal Inspection. No: CVA Tenderness (L), CVA Tenderness (R) Extremities: Normal Inspection, Normal Range of Motion, Non-Tender, No Pedal Edema, Normal Capillary Refill Neurological: No New Focal Deficit Psy/Mental Status: Alert, Normal Affect Sepsis Event Note - Evaluation Sepsis Screening Result: No Definite Risk - Focused Exam Vital Signs: Vital Signs Temp Pulse Resp BP BP Pulse Ox 06/25/19 16:00 97.3 F 16 109/80 98 06/25/19 12:00 97.0 F 18 107/70 94 L 06/25/19 08:17 122 H 133/100 H 06/25/19 08:00 97.6 F 18 133/100 H 94 L Date Exam was Performed: 06/25/19 Time Exam was Performed: 18:41 - Problem List & Annotations (1) Atrial fibrillation with RVR SNOMED Code(s): 149851217172845 Code(s): I48.91 - UNSPECIFIED ATRIAL FIBRILLATION Status: Acute Priority : High Current Visit: Yes (2) Hypertension SNOMED Code(s): 16260634 Code(s): I10 - ESSENTIAL (PRIMARY) HYPERTENSION Status: Chronic Priority : Medium Current Visit: Yes Qualifiers: Hypertension type: unspecified Qualified Code(s): I10 - Essential (primary ) hypertension (3) Hypothyroidism SNOMED Code(s): 48652315 Code(s): E03.9 - HYPOTHYROIDISM, UNSPECIFIED Status: Chronic Priority: Medium Current Visit: Yes Qualifiers: Hypothyroidism type: unspecified Qualified Code(s): E03.9 - Hypothyroidism , unspecified (4) Obesity, Class III, BMI 40-49.9 (morbid obesity) SNOMED Code(s): 268812793, 146541054, 40508164276571 Code(s): E66.01 - MORBID (SEVERE) OBESITY DUE TO EXCESS CALORIES Status: Chronic Priority: Low Current Visit: No (5) Sleep apnea SNOMED Code(s): 74957159 Code(s): G47.30 - SLEEP APNEA, UNSPECIFIED Status: Acute Current Visit: Yes - Problem List Review Problem List Initiated/Reviewed/Updated: Yes - Plan Plan:: Atrial fibrillation with RVR HR on admission 153 Given Diltiazem 10mg IV and started on drip with minimal improvement--> switched to Amiodarone drip--> transitioned to PO Lovenox given in ED [id number]-BPHs score of 1 (0.6% CVA risk per year) Rate 85-124--> will increase PO Amiodarone Echocardiogram without any intracavitary clots PLAN - Amiodarone 400mg BID - Will discuss anticoagulation tomorrow Obstructive sleep apnea Previous diagnosis Non compliant with CPAP Discussed importance of compliance with patient PLAN - New sleep study needs to be scheduled as an outpatient Hypertension, stable BP trend 91-121/76-104 PLAN - Reconciled home meds - PRN hydralazine Hypothyroidism, stable Unknown control Patient voices compliance TSH 0.127; Free T4 1.43 PLAN - Continue home levothyroxine Obesity, Class III, BMI 40-49.9 (morbid obesity), stable Patient on metformin for weight loss HbA1c 5.60 PLAN - Consult dietary PROPHYLAXIS DVT- compression stockings GI- not indicated CODE STATUS: FULL CODE DISPOSITION: Patient was admitted to the ICU for diltiazem drip and changed to IV amiodarone drip, drip off currently on PO Amiodarone. Echocardiogram normal. Started on anticoagulation yesterday will discuss with patient tomorrow. 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
[2019-06-25] MEDS: Sodium Chloride 0.9% 10 ML Syringe FLUSH PRN (20:10)
[2019-06-26] MEDS: Metoprolol Tartrate 50 MG Tab PO SCH (08:58)
[2019-06-26] MEDS ORDERED: Benzonatate 100 MG Cap PO SCH (09:00)
[2019-06-26] MEDS: Hydrochlorothiazide 12.5 MG Cap PO SCH (09:00)
[2019-06-26] MEDS: Lisinopril 20 MG Tab PO SCH (09:00)
[2019-06-26] MEDS: guaiFENesin 600 MG Tab.ER PO SCH ×2 (09:00→20:10)
[2019-06-26] MEDS: Amiodarone 200 MG Tab PO SCH ×2 (09:01→20:11)
[2019-06-26] MEDS: Benzonatate 100 MG Cap PO SCH ×3 (09:03→21:44)
[2019-06-26] MEDS ORDERED: Metoprolol Tartrate 100 MG Tab PO SCH (10:32)
[2019-06-26] MEDS ORDERED: Metoprolol Tartrate 50 MG Tab PO ONE (10:45)
[2019-06-26] MEDS: Metoprolol Tartrate 100 MG Tab PO SCH (20:12)
[2019-06-27] MEDS: Lisinopril 20 MG Tab PO SCH (08:55)
[2019-06-27] MEDS: Amiodarone 200 MG Tab PO SCH (08:55)
[2019-06-27] MEDS: Benzonatate 100 MG Cap PO SCH (08:56)
[2019-06-27] MEDS: guaiFENesin 600 MG Tab.ER PO SCH (08:56)
[2019-06-27] MEDS: Metoprolol Tartrate 100 MG Tab PO SCH (08:56)
[2019-06-27] MEDS: Hydrochlorothiazide 12.5 MG Cap PO SCH (08:56)
--- NOTE | 2019-06-27 12:04 | PCM.DCSUM1 ---
Discharge Summary - Hospital Course HPI Initial Comments: This is a 63 year old male with past medical history of hypertension who comes to the ED referred by outpatient walk in clinic for afib with RVR. As per patient he started having nasal congestion and coughing for about 3 days. On Wednesday he consulted walk in clinic and was given Zithromax and sent home to f/u in 2 days. Upon follow up patient was found to be tachycardic still for which he was sent to the ED for further evaluation and management. Diagnosis: Stroke: No - Discharge Data Discharge Date: 06/27/19 Discharge Disposition: Home, Self-Care Condition: Good - Referral to Home Health Primary Care Physician: PCP Not In Area - Discharge Diagnosis/Problem(s) (1) Atrial fibrillation with RVR SNOMED Code(s): 854722905361505 ICD Code: I48.91 - UNSPECIFIED ATRIAL FIBRILLATION Status: Acute Priority : High (2) Hypertension SNOMED Code(s): 98063813 ICD Code: I10 - ESSENTIAL (PRIMARY) HYPERTENSION Status: Chronic Priority : Medium Qualifiers: Hypertension type: unspecified Qualified Code(s): I10 - Essential (primary ) hypertension (3) Hypothyroidism SNOMED Code(s): 10306639 ICD Code: E03.9 - HYPOTHYROIDISM, UNSPECIFIED Status: Chronic Priority: Medium Qualifiers: Hypothyroidism type: unspecified Qualified Code(s): E03.9 - Hypothyroidism , unspecified (4) Obesity, Class III, BMI 40-49.9 (morbid obesity) SNOMED Code(s): 732708901, 496275773, 44329547602994 ICD Code: E66.01 - MORBID (SEVERE) OBESITY DUE TO EXCESS CALORIES Status: Chronic Priority: Low (5) Sleep apnea SNOMED Code(s): 63975922 ICD Code: G47.30 - SLEEP APNEA, UNSPECIFIED Status: Acute - Patient Summary/Data Consults: Consultations 06/23/19 12:03 Consult to Dietary [Consult to Commercial Intern] [CONS] Routine Labs Pending at D/C: lipid panel Repeat TSH and T4 Recommended Follow-up Testing/Procedures: Sleep study Hospital Course: Once in the ED he was given IV diltiazem push x 2 and started on Diltiazem drip. He was admitted to the ICU and after >12 hours on Diltiazem drip the hear rate was still >120's so drip was switched to Amiodarone while adding metoprolol at the same time. Rate was controlled after adjustment of Amiodarone and metoprolol, he has received 2 days of the 400BID. CHADs VASC score was calculated at 1 (due to hypertension), Diabetes was ruled out with an A1c of 5.7% Patient has a previous prescription for metformin for weight loss, I discussed indications with him and recommend discussing adding liraglutide instead. He also has a previous diagnoses of sleep apnea for which he was given a CPAP, he stopped using this a couple of years ago, discussed importance of getting a new sleep study done to adjust CPAP settings. Lipid panel has been ordered and pending. Echocardiogram was performed and resulted as: mild right and moderate left atrial dilation, mild concentric left ventricular hypertrophy, mildly increased left ventricular posterior wall thickness, variable EF from beat to bet but appears normal with aortic valve sclerosis. - Patient Instructions Diet: Heart Healthy Diet - Discharge Plan *PRESCRIPTION DRUG MONITORING PROGRAM REVIEWED*: Not Applicable *COPY OF PRESCRIPTION DRUG MONITORING REPORT IN PATIENT BETO: Not Applicable Prescriptions/Med Rec: Amiodarone [Cordarone] 400 mg PO BID #120 tablet hydroCHLOROthiazide [Hydrochlorothiazide] 12.5 mg PO DAILY #30 cap lisinopriL [Prinivil] 20 mg PO BEDTIME #30 tablet Metoprolol Tartrate [Lopressor] 100 mg PO BID #60 tablet Home Medications: Home Meds Aspirin [Halfprin] 81 mg PO DAILY 06/22/19 [History] Levothyroxine 175 mcg PO ACBREAKFAST 06/23/19 [History] Sildenafil Citrate 60 mg PO ASDIRECTED PRN 06/23/19 [History] metFORMIN HCl [Glucophage] 1,000 mg PO DAILY 06/23/19 [History] Amiodarone [Cordarone] 400 mg PO BID #120 tablet 06/27/19 [Rx] Metoprolol Tartrate [Lopressor] 100 mg PO BID #60 tablet 06/27/19 [Rx] hydroCHLOROthiazide [Hydrochlorothiazide] 12.5 mg PO DAILY #30 cap 06/27/19 [Rx] lisinopriL [Prinivil] 20 mg PO BEDTIME #30 tablet 06/27/19 [Rx] Patient Handouts: Atrial Fibrillation, [id number] Forms: ED Department Discharge Referrals: Marino Sanchez MD [Ordering Only Provider] - 07/07/19 1:00 pm (come 15 minutes prior to the appointment to register, bring insurance cards and photo ID. ) Andriy Calix Jr, MD [Ordering Only Provider] - 07/04/19 9:00 am (this appointment is for hospital follow up. please come 15 minutes prior to appoinment bring insurance cards and photo ID) Rohith Conrad MD [Physician] - 08/21/19 10:30 am (come 15 minutes prior to the appointment time to register bring insurance cards and photo ID this appointment is to establish care with Dr. Christianson ) - Discharge Summary/Plan Comment DC Time >30 min.: Yes - General Info Date of Service: 06/27/19 Subjective Update: Feeling OK No chest pain, palpitations, shortness of breath or dizziness Slept OK Tolerating diet Ambulating - Patient Data Vitals - Most Recent: Last Vital Signs Temp 97.8 F 06/27/19 07:23 Pulse 113 H 06/27/19 08:56 Resp 18 06/27/19 07:23 BP 125/88 06/27/19 08:56 Pulse Ox 88 L 06/27/19 07:23 Weight - Most Recent: 123.422 kg - Exam General: Reports: Alert, Oriented, Cooperative, No Acute Distress HEENT: Reports: Pupils Equal, Pupils Reactive, EOMI, Mucous Membr. Moist/[place]. Denies: Scleral Icterus Neck: Reports: Supple, Trachea Midline, No JVD, No Thyromegaly, +2 Carotid Pulse wo Bruit. Denies: Lymphadenopathy Lungs: Reports: Clear to Auscultation, Normal Respiratory Effort. Denies: Crackles, Rales, Rhonchi, Wheezing Cardiovascular: Reports: Regular Rate, Regular Rhythm. Denies: Murmurs, Gallops , Rubs GI/Abdominal Exam: Normal Bowel Sounds, Soft, Non-Tender, Distended. No: Guarding, Rigid, Rebound Back Exam: Reports: Normal Inspection, Full Range of Motion. Denies: CVA Tenderness (L), CVA Tenderness (R) Extremities: Normal Inspection, Normal Range of Motion, Non-Tender, No Pedal Edema, Normal Capillary Refill Skin: Reports: Warm, Dry Neurological: Reports: No New Focal Deficit
[2019-06-27] MEDS ORDERED: FLU Vacc QS2019-20(6MOS+)/PF 60 MCG/0.5 ML SYRINGE IM ONE (12:30)
--- NOTE | 2019-06-27 13:22 | PCM.PN ---
- General Info Date of Service: 06/26/19 Subjective Update: Feeling ok Tolerating diet Ambulating - Patient Data Weight - Most Recent: 123.422 kg - Exam General: Alert, Oriented, Cooperative, No Acute Distress HEENT: Pupils Equal, Pupils Reactive, EOMI, Mucous Membr. Moist/[place]. No: Scleral Icterus Neck: Supple, Trachea Midline, No JVD, No Thyromegaly, +2 Carotid Pulse wo Bruit. No: Lymphadenopathy Lungs: Clear to Auscultation, Normal Respiratory Effort. No: Crackles, Rales, Rhonchi, Wheezing Cardiovascular: Regular Rate, Irregular Rhythm. No: Murmurs, Gallops, Rubs GI/Abdominal Exam: Normal Bowel Sounds, Soft, Non-Tender, No Organomegaly, Distended. No: Guarding, Rigid, Rebound Back Exam: Normal Inspection Extremities: Normal Inspection, Normal Range of Motion, Non-Tender, No Pedal Edema, Normal Capillary Refill Peripheral Pulses: 2+: Radial (L), Radial (R) Skin: Warm, Dry Neurological: No New Focal Deficit Psy/Mental Status: Alert Sepsis Event Note - Evaluation Sepsis Screening Result: No Definite Risk - Focused Exam Vital Signs: Vital Signs Temp Pulse Resp BP BP Pulse Ox 06/27/19 10:00 125/88 06/27/19 08:56 113 H 125/88 06/27/19 08:55 125/88 06/27/19 07:23 97.8 F 18 125/88 88 L 06/27/19 04:00 97.1 F 16 126/82 94 L Date Exam was Performed: 06/27/19 Time Exam was Performed: 13:18 - Problem List & Annotations (1) Atrial fibrillation with RVR SNOMED Code(s): 390016624586456 Code(s): I48.91 - UNSPECIFIED ATRIAL FIBRILLATION Status: Acute Priority : High (2) Hypertension SNOMED Code(s): 76411297 Code(s): I10 - ESSENTIAL (PRIMARY) HYPERTENSION Status: Chronic Priority : Medium Qualifiers: Hypertension type: unspecified Qualified Code(s): I10 - Essential (primary ) hypertension (3) Hypothyroidism SNOMED Code(s): 59754550 Code(s): E03.9 - HYPOTHYROIDISM, UNSPECIFIED Status: Chronic Priority: Medium Qualifiers: Hypothyroidism type: unspecified Qualified Code(s): E03.9 - Hypothyroidism , unspecified (4) Obesity, Class III, BMI 40-49.9 (morbid obesity) SNOMED Code(s): 501082787, 351750502, 65083236951580 Code(s): E66.01 - MORBID (SEVERE) OBESITY DUE TO EXCESS CALORIES Status: Chronic Priority: Low (5) Sleep apnea SNOMED Code(s): 52484897 Code(s): G47.30 - SLEEP APNEA, UNSPECIFIED Status: Acute - Problem List Review Problem List Initiated/Reviewed/Updated: Yes - Plan Plan:: Atrial fibrillation with RVR ON admission given Diltiazem 10mg IV and started on drip with minimal improvement--> switched to Amiodarone drip--> transitioned to PO Lovenox given in ED [id number] score of 1 (0.6% CVA risk per year) Rate 85-124--> will increase PO Amiodarone Echocardiogram without any intracavitary clots Discussed anticoagulation and patient voiced understanding to defer initiation until age 65 or unless otherwise indicated by PCP or cardiology HR trend 76-94 PLAN - Amiodarone 400mg BID - Metoprolol 50 BID Obstructive sleep apnea Previous diagnosis Non compliant with CPAP Discussed importance of compliance with patient PLAN - New sleep study needs to be scheduled as an outpatient Hypertension, stable BP trend 106-140/66-94 PLAN - Reconciled home meds - PRN hydralazine Hypothyroidism, stable Unknown control Patient voices compliance TSH 0.127; Free T4 1.43 PLAN - Continue home levothyroxine Obesity, Class III, BMI 40-49.9 (morbid obesity), stable Patient on metformin for weight loss HbA1c 5.60 PLAN - Consult dietary PROPHYLAXIS DVT- compression stockings GI- not indicated CODE STATUS: FULL CODE DISPOSITION: Patient was admitted to the ICU for diltiazem drip and changed to IV amiodarone drip, drip off currently on PO Amiodarone. Echocardiogram normal. Anticoagulation will be discontinued today. 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
== END 2019-06-27 12:54 | disposition home or self-care (01) | DRG 309 ==
LOC: JD.ED 13:23 → JD.ICU 17:37
PROVIDERS: ADMIT Internal Medicine; ATTEND Internal Medicine
DX: I48.91 Unspecified atrial fibrillation (principal); Z68.41 Body mass index [BMI] 40.0-44.9, adult; I10 Essential (primary) hypertension; E03.9 Hypothyroidism, unspecified; E66.01 Morbid (severe) obesity due to excess calories; G47.33 Obstructive sleep apnea (adult) (pediatric); Z23 Encounter for immunization
CPT/HCPCS: 36415; 71046; 71046-26; 80048; 80053; 80061; 81003; 83036; 83735; 83880; 84100; 84439; 84443; 84484; 85025; 85610; 85730; 90686; 93005; 93306; 96372; 96374; 99283; 99285-25; A9270-GY; J0282; J1650; J3490; J7050